=== PATIENT | female | born 1995 | race African-American/Black ===

== ENCOUNTER 2017-06-28 12:54 | Emergency (ER) | payer OTHER ==
[2017-06-28 13:05] VITALS: BP 129/50; PULSE 58; TEMP 98.2; BMI 23.8
[2017-06-28] MEDS ORDERED: NAPROXEN 500 MG TABLET (FP) PO ONE (14:56)
--- NOTE | 2017-06-28 15:01 | PDOC ---
History of Present Illness - General Chief Complaint: Back Pain Stated Complaint: LOWER BACK PAIN Time Seen by Provider: 06/28/17 14:40 History Source: Patient Exam Limitations: No Limitations - History of Present Illness Initial Comments: 06/28/17 14:57 This is a 21-year-old woman without significant past medical history who presents today with atraumatic lower back pain started while doing crossfit exercises. States she was performing these exercises when she felt a pinch in her lower back. He states she usually has chronic lower back pain and that this is a different pain that she normally feels. She denies any urinary symptoms, urinary or fecal incontinence, or saddle anesthesia. She denies any fevers, cough, chest pain, nausea, vomiting, dizziness, abdominal pain. She is very made an appointment with her primary doctor for evaluation next week but the pain was unbearable so she presented for evaluation here today. Pain: P-lower back Q- Achy R- no radiation S- 8/10 T- 3 days PMD: [facility] PMH- chronic back pain PSH- denies Severity: reports: mild Pain Location: reports: none Past History - Past Medical History Allergies/Adverse Reactions: Allergies Allergy/AdvReac Type Severity Reaction Status Date / Time No Known Allergies Allergy Verified 06/28/17 13:05 Home Medications: Ambulatory Orders Cyclobenzaprine HCl [Flexeril 10 mg] 10 mg PO BID PRN #20 tablet 06/28/17 Other medical history: chronic back pain - Psycho/Social/Smoking Cessation Hx Anxiety: No Suicidal Ideation: No Smoking History: Never smoked Have you smoked in the past 12 months: No Information on smoking cessation initiated: No Hx Alcohol Use: No Drug/Substance Use Hx: No Substance Use Type: None Review of Systems - Review of Systems Able to Perform ROS?: Yes Is the patient limited Croatian proficient: No Constitutional: No: Symptoms Reported HEENTM: No: Symptoms Reported Respiratory: No: Symptoms reported Cardiac (ROS): No: Symptoms Reported ABD/GI: No: Symptoms Reported : No: Symptoms Reported Musculoskeletal: Yes: See HPI Integumentary: No: Symptoms Reported Neurological: No: Symptoms reported *Physical Exam - Vital Signs Last Vital Signs Temp Pulse Resp BP Pulse Ox 98.2 F 58 L 18 129/50 100 06/28/17 13:03 06/28/17 13:03 06/28/17 13:03 06/28/17 13:03 06/28/17 13:03 - Physical Exam General Appearance: Yes: Appropriately Dressed. No: Apparent Distress HEENT: positive: EOMI, ELIE, Normal Voice Neck: positive: Trachea midline, Supple Respiratory/Chest: positive: Lungs Clear, Normal Breath Sounds. negative: Respiratory Distress, Accessory Muscle Use Cardiovascular: positive: Regular Rhythm, Regular Rate, S1, S2 Gastrointestinal/Abdominal: positive: Normal Bowel Sounds, Soft. negative: Tender, Organomegaly Musculoskeletal: positive: Normal Inspection, Other (Palpation over right paraspinous muscles). negative: CVA Tenderness Extremity: positive: Normal Capillary Refill, Normal Inspection, Normal Range of Motion. 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 States she was performing these exercises when she felt a pinch in her lower back. He states she usually has chronic lower back pain and that this is a different pain that she normally feels. She denies any urinary symptoms, urinary or fecal incontinence, or saddle anesthesia. She denies any fevers, cough, chest pain, nausea, vomiting, dizziness, abdominal pain. She is very made an appointment with her primary doctor for evaluation next week but the pain was unbearable so she presented for evaluation here today. patient denies any vaginal bleeding, discharge, urinary frequency, dysuria. Ambulatory into ER today. also spinal deformities present. Pain noted to the right paraspinous area. full sensation to lower extremities and buttocks. P: Dx: musculoskeletal pain UA, upreg, Naprosyn 06/28/17 16:30 Pain resolved after naproxen and flereril. Will discharge with flexeril I discussed the physical exam findings, ancillary test results and final diagnoses with the patient. I answered all of the patient's questions. The patient was satisfied with the care received and felt comfortable with the discharge plan and treatment plan. The patient will call her doctor within 72 hours to arrange follow-up and will return to the Emergency Department with any new, persistent or worsening symptoms. *DC/Admit/Observation/Transfer Diagnosis at time of Disposition: Lower back pain Qualifiers: Chronicity: acute Back pain laterality: right Sciatica presence: without sciatica Qualified Code(s): M54.5 - Low back pain - Discharge Dispostion Disposition: HOME Condition at time of disposition: Stable Admit: No - Prescriptions Prescriptions: Cyclobenzaprine HCl [Flexeril 10 mg] 10 mg PO BID PRN #20 tablet PRN Reason: Back Pain - Patient Instructions Printed Discharge Instructions: DI for Low Back Pain Additional Instructions: Take Naprosyn aspirin directed by manufacturers instructions as needed for pain. Keep well hydrated. Eat a well balanced diet. Apply warm moist heat to affected areas to help relieve muscle spasms. Return to the emergency department for any increased pain, loss of sensation to feet, inability to control her bladder or your bowels, or any other concerns. Thank you for choosing us to provide your emergent healthcare needs.
[2017-06-28] MEDS ORDERED: NAPROXEN 500 MG TABLET (FP) ONE (15:03)
[2017-06-28 15:19] LABS: URINE APPEARANCE CLEAR; URINE BILIRUBIN NEGATIVE (NEGATIVE); URINE BLOOD NEGATIVE (NEGATIVE); URINE COLOR LTYELLOW; URINE GLUCOSE (UA) NEGATIVE (NEGATIVE); URINE KETONE TRACE (NEGATIVE); URINE LEUK ESTERASE NEGATIVE (NEGATIVE); URINE NITRITE NEGATIVE (NEGATIVE); URINE PROTEIN NEGATIVE (NEGATIVE); URINE UROBILINOGEN NEGATIVE mg/dL (0.2-1.0)
[2017-06-28] MEDS ORDERED: CYCLOBENZAPRINE HCL 10 MG TABLET (FP) PO ONE (15:33)
[2017-06-28] MEDS ORDERED: CYCLOBENZAPRINE HCL 10 MG TABLET (FP) ONE (15:38)
== END 2017-06-28 16:39 | disposition home or self-care (01) ==
LOC: JERFT 12:54
DX: M54.5 Low back pain (principal); X50.0XXA Overexertion from strenuous movement or load, initial encounter; Y93.B9 Activity, other involving muscle strengthening exercises; Y92.89 Other specified places as the place of occurrence of the external cause; Y99.8 Other external cause status
CPT/HCPCS: 81003; 84703; 99281-25